=== PATIENT | female | born 1990 | race Caucasian/White ===

== ENCOUNTER 2016-09-25 11:04 | Inpatient (IN) | payer OTHER ==
[~2016-09-25] VITALS: Ht 157.5 cm; Wt 45.4 kg
[~2016-09-25 11:04] MED LIST: TOPAMAX100 MG PO
[2016-09-25 13:12] LABS: BASOPHIL % 1.4 % (0-2); PLATELET COUNT 222 x10^3mcL (130-400); RED CELL DISTRIBUTION WIDTH 12.9 % (11.5-14.5)
[2016-09-25 13:32] LABS: CK-MB < 0.5 ng/mL (0-3.6); CREATINE KINASE 144 U/L (26-192)
[2016-09-25 13:43] LABS: ALBUMIN 3.7 g/dL (3.4-5.0); ALKALINE PHOSPHATASE 52 U/L (46-116); ALT/SGPT 15 U/L (14-59); AST/SGOT 15 U/L (15-37); BILIRUBIN TOTAL 0.36 mg/dL (0.20-1.00); C REACTIVE PROTEIN 0.3 mg/dL (<=0.9); CALCIUM 8.7 mg/dL (8.5-10.1); CARBON DIOXIDE 24.6 mmol/L (21-32); CHLORIDE SERUM 106 mmol/L (98-107); CREATININE SERUM 0.5 mg/dL (0.6-1.0); GFR1 > 60 mL/min; GLUCOSE SERUM 78 mg/dL (74-106); POTASSIUM SERUM 3.7 mmol/L (3.5-5.1); SODIUM SERUM 142 mmol/L (136-145); TOTAL PROTEIN, SERUM 6.8 g/dL (6.4-8.2)
[2016-09-25 13:47] LABS: T3 TOTAL 1.01 ng/mL
--- NOTE | 2016-09-25 13:50 | NUR ---
PT WENT TO AND FROM RADIOLOGY WITHOUT INCIDENCE
[2016-09-25 14:07] LABS: microscopic required? YES; urine erythrocyte 1+ (NEGATIVE)
--- NOTE | 2016-09-25 14:09 | NUR ---
PT PRESENTS TO THE ED WITH THE COMPLAINT OF BILATERAL LOWER BACK PAIN X 1 WEEK. PT DENIES ANY HEMATURIA OR DYSURIA.
[2016-09-25 14:15] LABS: FREE T4 0.93 ng/dL (0.76-1.46); FREE THYROXINE INDEX 2.5 ug/dL (1.4-4.5); T4(THYROXINE) 7.2 ug/dL (4.7-13.3)
--- NOTE | 2016-09-25 14:34 | NUR ---
DR. MACIEL AT [facility] TO DISCUSS RESULTS WITH PATIENT AND MOTHER. PATIENT REMAINS STABLE.
[2016-09-25 15:02] LABS: ERYTHROCYTE SED RATE 11 mm/hr (0-20)
[2016-09-25] MEDS ORDERED: AMBIEN CR12.5 MG PO (17:28)
[2016-09-25] MEDS ORDERED: EMSAM12 MG/24 H TD (17:28)
[2016-09-25] MEDS ORDERED: TOPAMAX100 MG PO (17:29)
[2016-09-25] MEDS ORDERED: TOPAMAX50 M1 PO (17:29)
--- NOTE | 2016-09-25 17:50 | NUR ---
REPORT CALLED TO SPENCER ON TELE UNIT AT THIS TIME
[2016-09-25 18:31] VITALS: BP 101/69
--- NOTE | 2016-09-25 18:39 | NUR ---
REC'D AOX4, SPEECH CLEAR .MOTHER AT THE BEDSIDE. ATTACHED TELE 23, NOTED NSR, DENIES CHEST PAIN. ON RA, NO SOB NOTED. SKIN INTACT. IV SITE WNL. ORIENTED TO ROOM AND SURROUNDINGS. CALL LIGHT WITHIN REACH, WILL CONTINUE TO MONITOR
[2016-09-25 18:50] LABS: MAGNESIUM 1.9 mg/dL (1.8-2.4)
[2016-09-25 18:51] LABS: CHOLESTEROL/HDL RATIO 2.4
--- NOTE | 2016-09-25 20:00 | NUR ---
RECEIVED PT IN BED AWAKE ALERT AND ORIENTED. TELE # 23 AND IS NSR ON THE MONITOR. PULSES PALPABLE, NO EDEMA NOTED. LUNGS CLEAR. BOWEL SOUNDS PRESENT. VOIDS WITHOUT DIFFICULTY. AMBULATORY. SKIN INTACT. NO C/O PAIN NOTED. IV TO THE RAC INFUSING WELL WITH NO INFILTRATION NOTED. INSTRUCTED PT TO USE CALL LIGHT IF NEEDS ASSISTANCE WITH ANYTHING. CALL LIGHT IN REACH. WILL MONITOR.
--- NOTE | 2016-09-25 20:38 | NUR ---
PT C/O PAIN AND RECEIVED NORCO ODERED. WILL CONTINUE TO MONITOR.
--- NOTE | 2016-09-26 | NUR ---
PT SLEEPING AT THIS TIME, NO DISTRESS NOTED. WILL MONITOR PT. CALL LIGHT IN REACH.
--- NOTE | 2016-09-26 03:00 | NUR ---
NO [id number] NOTED AT THIS TIME. WILL MONITOR.
[2016-09-26 05:03] LABS: AMPHETAMINE QUAL UR NONE DETECTED (NEG <=1000)
[2016-09-26 05:29] VITALS: BP 104/68
--- NOTE | 2016-09-26 06:59 | NUR ---
PT C/O PAIN AND RECEIVED NORCO ORDERED. NO DISTRESS NOTED. RESPIRATIONS EVEN AND UNLABORED. PT IS STABLE AT THIS TIME AND REPORT GIVEN TO ANAHY MUSE.
--- NOTE | 2016-09-26 07:00 | NUR ---
PT AWAKE AND ALERT, SKIN WARM AND DRY. BREATH SOUNDS CLEAR CONSTANTINO, NO RESP DISTRESS NOTED. TELE BOX #33 CHECKED ON PATIENT AND VERIFIED WITH [employer]TY [employer]ER ASSEMBLER AND SHOWS SR WITH HR 69/MIN. PT DENIES ANY CHEST PAIN. ABD SOFT AND FLAT WITH AUDIBLE [id number], PT JUST GOT NORCO FOR PAIN AT 0640AM. PT DENIES PROBLEM VOIDING. IV SITE ON RT AC, WITHOUT S/S INFILTRATION. IV NS INFUSING WELL AT 100CC/HR. JOSR WELL WITH DIFFICULTY. PT NPO FOR NOW. DR. Luciano OLIVAREZ TO SEE PATIENT. PT AWARE TO HOLD AND NOT VOID AND TO CALL IF SHE URGENCY FOR US BLADDER THIS AM. CALL LIGHT WITHIN REACHED. BE IN LOW POSITION.
--- NOTE | 2016-09-26 08:00 | NUR ---
US BLADDER DONE. MOTHER AT BEDSIDE.
--- NOTE | 2016-09-26 08:30 | NUR ---
DR. ORR AND MEDICAL TEAM IN TO SEE PATIENT. MOTHER AT BEDSIDE. ORDERED BREAKFAST THIS AM.
[2016-09-26 08:44] LABS: BASOPHIL % 0.6 % (0-2); PLATELET COUNT 205 x10^3mcL (130-400); RED CELL DISTRIBUTION WIDTH 12.8 % (11.5-14.5)
--- NOTE | 2016-09-26 09:00 | NUR ---
IV SITE ON RT AC SWOLLEN AND DCD. NEW IV SITE STARTED ON LT WRIST, #22 ANGIO WITH GOOD BLOOD RETURNED. IVF NS INFSUING WELL AT 100CC/HR. PT EATING BREAKFAST THIS TIME. PT STATED PAIN IS DOWN TO 4/5 FROM 8 AND TOLERABLE. CALL LIGHT WITHIN REACHED.
[2016-09-26 09:13] LABS: CALCIUM 8.3 mg/dL (8.5-10.1); CARBON DIOXIDE 23.5 mmol/L (21-32); CHLORIDE SERUM 109 mmol/L (98-107); CREATININE SERUM 0.6 mg/dL (0.6-1.0); GFR1 > 60 mL/min; GLUCOSE SERUM 85 mg/dL (74-106); MAGNESIUM 1.9 mg/dL (1.8-2.4); PHOSPHOROUS 4.1 mg/dL (2.5-4.9); SODIUM SERUM 140 mmol/L (136-145)
[2016-09-26 10:00] VITALS: BP 102/68
--- NOTE | 2016-09-26 10:43 | NUR ---
PT RESTING QUIETLY IN BED. TOLERATED BREAKFAST WELL. PT DENIES ANY PAIN AT THIS TIME. PT HAS ORDERED TELE DCD AND CONVERTED TO MED/SURG. CALL LIGHT WITHIN REACHED. IV SITE ON LT WRIST, NO S/S INFILTRATION. MOTHER AT BEDSIDE AND VERY SUPPORTIVE.
--- NOTE | 2016-09-26 11:05 | NUR ---
ASSUMING PATIENT CARE. REC'D RESTING IN BED, AOX4, SPEECH CLEAR. ON RA, NO SOB NOTED. GUESTS AT THE BEDSIDE. NO DISTRESS NOTED. ON TELE 23. IV SITE WNL. CALL LIGHT WITHIN REACH, WILL CONTINUE TO MONITOR.
--- NOTE | 2016-09-26 11:18 | NUR ---
ENDORSED TO SPENCER. BEDSIDE REPORT GIVEN.
--- NOTE | 2016-09-26 12:20 | NUR ---
C/O PAIN 10/30, MEDICATED ORDERED. GUEST AT THE BEDSIDE. WILL CONTINUE TO MONITOR
[2016-09-26 14:00] VITALS: BP 94/61
--- NOTE | 2016-09-26 14:10 | NUR ---
PT C/O MANNING, MEDICATED ORDERED. GUEST AT THE BEDSIDE
--- NOTE | 2016-09-26 16:12 | NUR ---
PT C/O JEFF, MEDICATED ORDERD
--- NOTE | 2016-09-26 19:50 | NUR ---
REC'D PT FROM DAY SHIFT NURSE. FAMILY AT BEDSIDE. TERRI PREC IN PLACE. AAOX4, SPEECH CLEAR, NO SIGNS OF DISTRESS NOTED. BREATHING EVEN/UNLABORED ON RA. MED SURG PT. NO TELE. DENIES CP, DIZZINESS, OR PALPITATIONS. C/O SHARP INT LOWER BACK PAIN 11/30. WILL GIVE NORCO PER ORDER. SKIN INTACT. PT AMBULATORY. CALL LIGHT WITHIN REACH, BED AT LOWEST POSITION. WILL CONTINUE TO MONITOR.
--- NOTE | 2016-09-26 20:35 | NUR ---
KPAD APPLIED TO LOWER BACK. WILL MONITOR FOR RELIEF.
[2016-09-26 22:01] VITALS: BP 100/62
--- NOTE | 2016-09-27 02:32 | NUR ---
PT RESTING IN BED WITH EYES CLOSED. NO S/SX OF PAIN NOTED. BREATHING EVEN/UNLABORED ON RA. CALL LIGHT WITHIN REACH, BED AT LOWEST POSITION. WILL CONTINUE TO MONNITOR.
[2016-09-27 04:57] VITALS: BP 103/55
[2016-09-27 06:29] LABS: CALCIUM 8.6 mg/dL (8.5-10.1); CHLORIDE SERUM 109 mmol/L (98-107); CREATININE SERUM 0.6 mg/dL (0.6-1.0); GFR1 > 60 mL/min; GLUCOSE SERUM 87 mg/dL (74-106); POTASSIUM SERUM 3.8 mmol/L (3.5-5.1); SODIUM SERUM 140 mmol/L (136-145)
--- NOTE | 2016-09-27 06:29 | NUR ---
PT AWAKE. RESTING IN BED. C/O LOWER BACK PAIN 10/30. SCHEDULED ROBAXIN GIVEN PER ORDER. REPORTS PAIN RELIEF WITH KPAD. NO OTHER COMPLAINTS. DENIES NAUSEA OR ABD PAIN. INSTRUCTED TO HOLD URINE FOR US RENAL. NO SIGNS OF DISTRESS NOTED. BREATHING EVEN/UNLABORED ON RA. NO SIGNIFICANT CHANGES DURING SHIFT. WILL ENDORSE TO DAY SHIFT NURSE.
[2016-09-27 07:03] LABS: BASOPHIL % 0.5 % (0-2); PLATELET COUNT 215 x10^3mcL (130-400); RED CELL DISTRIBUTION WIDTH 12.7 % (11.5-14.5)
--- NOTE | 2016-09-27 07:31 | NUR ---
RECEIVED PT LAYING IN BED AWAKE AND ALERT. STATES THAT SHE IS EXPERIENCING PAIN 4/10 IN THE RUQ. STATES THAT IT IS R/T HER SCOLIOSIS. WILL REVIEW PRN LIST. IV INFUSING WELL. INFORMATION BOARD UPDATED. LOW IN LOWEST POSITION. CALL LIGHT WITHIN REACH. WILL CONTINUE TO MONITOR.
--- NOTE | 2016-09-27 08:45 | NUR ---
AM ROUNDS DONE BY DR. ORR. PLAN IF FOR PT TO DISCHARGE LATER ON TODAY. WILL DISCHARGE WITH ABX PO. MOTHER AT BEDSIDE. PT WAS RECEPTIVE AND AGREES TO PLAN OF CARE. WILL CONTINUE TO MONITOR
[2016-09-27 09:31] VITALS: BP 110/73
--- NOTE | 2016-09-27 11:06 | NUR ---
PT REPORTS BACK PAIN 10/30. ENCOURAGED PT TO RELAX, TAKE DEEP BREATHS AND REPOSITION FOR COMORT. GIVEN NORCO PO PRN. CALL LIGHT WITHIN REACH. MOTHER AT BEDSIDE. WILL CONTINUE TO MONITOR
[2016-09-27] MEDS ORDERED: ROB750 PO (12:03)
[2016-09-27] MEDS ORDERED: NORCO1 TA2 PO (12:03)
[2016-09-27] MEDS ORDERED: FLORASTOR1 CAP PO (12:05)
[2016-09-27] MEDS ORDERED: CIPROFLOXACIN500 MG PO (12:05)
[2016-09-27 13:04] VITALS: BP 110/73
--- NOTE | 2016-09-27 14:28 | NUR ---
PT LAYING IN BED. MOTHER AT BEDSIDE. PT STATES THAT SHE IS STILL EXPERIENCING PAIN 10/30. ENCOURAGED PT TO REPOSITION FOR COMFORT. KPAD IN PLACE. CALL LIGHT WITHIN REACH. WILL INFORM DOCTOR OF FINDINGS
--- NOTE | 2016-09-27 14:45 | NUR ---
Initial Nutrition Assessment Dx: Abdominal Pain poss 2/2 Appendicitis vs ruptured ovarian cyst PMHx: Nephrolithiasis, Anxiety, Bipolar Disorder, Type 1, Depressive type, Ovarian Cyst, Absence Seizures, Migraines PSHx: None Labs: BG 87, BUN 5L, Alb 3.7, WBC 3.7L, H/H 10.5/32L Meds: ultram, lactinex, zofran, norco, ferrous sulfate, vitamin C 500mg daily, colace, NS Current Diet Order: Regular (09/26) PO Intakes: 75-100%(09/27) I/O:1500/0 (+1500ml) Ht: 157cm,62". Wt: 99lbs, 45kg. BMI: 18.3 kg/m2 (Underweight- At risk for malnutrition) IBW: 110lb, 50 kg. %IBW: 90%-Mild Deficit. UBW: 95lbs x 1 month Age: 26 Y/O F Food Allergies: NKFA Skin:intact . Steve:22 Edema: None noted GI:C/O nausea . Last BM:1 forme d(09/25) Pt admitted w/Abdominal Pain poss 2/2 Appendicitis vs ruptured ovarian cyst. As per D.O note 09/26-Patient has not undergone surgery, continues to complain of R sided lower back pain in lumbar region and pain in the hypogastric area. OMT to be done today. start robaxin 500mg tid. k pad ordered previously for back pain. Pt is still complaining of pain in the R lower back rated at 7 out of 10. She has been able to ambulate and use the restroom. She uses the restroom 1-2 a day and has 1-2 bowel movements a day. The patient's appetite is normal but she admits that she occasionally feels nausea still. She has not vomited, had diarrhea or constipation. She felt chills and had sweats last night while she was sleeping. Pt still complains of headache rated at 5 out of 10 but denies dizziness, syncope and numbness. Pt seen at bedside w/ mother present, pt was of small frame and thin in apperance consistent w/ BMI, pt reports eating well for meals today, consumed 75-100%, C/O nausea,denies other GI issues, UBW:95lbs x1 month ago, at home the pt consumes 2-3 meals per day, the RD reviewed w/ pt and mother on regular diet and making food preferences known, nutrition packet and ensure coupons given, the pt and mother were highly receptive and engaged, pt declined oral supplement at this time. Problem with: N: Yes. V: None. D: none. C: None. Problem with: Chewing: None. Swallowing: None. Current Appetite: Good Recent Weight Change: +4lbs. % Weight Change: 4 Vitamin/Supplement Use: none Diet at Home: 2-3 meals per day as prepared by mother or sister Physical Activity: walking Education: none Estimated Nutritional Needs Based on IBW 110 lb, 50kg Energy: 9904-2885 kcal/day (30-35 kcal/kg for Repletion) Protein: 50-60 g/day (1-1.2 g/kg for Repletion) Fluid: 2981-9824 ml/day (30-35 ml/kg for Repletion) or per MD Nutrition Diagnosis 1. Underweight related to poss suboptimal energy and protein intake 2/2 Bipolar Disorder as evidenced by BMI:18.3 and %IBW: 90. Intervention 1. C/W Regular diet. Make food preferences known. Monitor/Evaluate Goal: PO intakes to meet at least 75% of estimated needs Monitor: PO intakes/tolerance, labs, skin integrity, GI function, wt F/U in 7 days as HIGH risk (6-14)
--- NOTE | 2016-09-27 14:47 | NUR ---
1. C/W Regular diet. Make food preferences known.
--- NOTE | 2016-09-27 15:54 | NUR ---
PT STATES THAT SHE IS STILL HAVING PAIN 10/30. WAS GIVEN AN ORDER OF PERCOCET PO PRN. DR. MA IS AWARE OF THE PAIN. WILL CONTINUE TO MONITOR
[2016-09-27 17:21] VITALS: BP 110/71
[2016-09-27] MEDS ORDERED: IBUPROFEN800 MG PO (18:56)
[2016-09-27] MEDS ORDERED: COLACE100 MG PO (18:56)
[2016-09-27] MEDS ORDERED: PERCOCET1 TAB PO (18:56)
[2016-09-27] MEDS ORDERED: DEXAMETHASONE4 MG PO (18:56)
--- NOTE | 2016-09-27 19:52 | NUR ---
AWAKE AN VERBALLY RESPONISVE. ABLE TO MAKE NEEDS KNOWN. RESPIRATION EVEN AND UNLABORED. BACK PAIN WITH L3VEL 3/10. WILL GIVE MEDICATION PER MD'S ORDER. FAMILY AT BEDSIDE VERY SUPPORTIVE OF PT'S PLAN OF CARE. FOR DISCHARGE TODAY. ALL PAPER WORKS WAS SIGNRD BY PT PER AM RN.
--- NOTE | 2016-09-27 20:37 | NUR ---
DISCHARGE INSTRUCTIONS GIVEN TO MOTHER, VERBALIZED UNDERSTANDING. DISCHARGED VIA WHEELCHAIR ACCOMPANIED BY MOTHER PER PRIVATE CAR IN STABLE CONFITION. VS TAKEN IP=060/66, HR=78, R=20, TEMP-98,4, NO S/S OF ACUTE DISTRESS.
== END 2016-09-27 20:40 | disposition home or self-care (01) | DRG 690 ==
LOC: ED 11:04 → DU 16:29 → MU 16:29 → DU 18:02 → MU 09-26 10:43
PROVIDERS: Specialist; ADMIT Family Medicine
DX: N30.90 Cystitis, unspecified without hematuria (principal); F31.30 Bipolar disorder, current episode depressed, mild or moderate severity, unspecified; Z68.1 Body mass index [BMI] 19.9 or less, adult; M54.5 Low back pain; G89.29 Other chronic pain; F41.9 Anxiety disorder, unspecified; D64.9 Anemia, unspecified; N83.209 Unspecified ovarian cyst, unspecified side; G40.A09 Absence epileptic syndrome, not intractable, without status epilepticus; Z87.442 Personal history of urinary calculi
CPT/HCPCS: 83880; 84439; J0694; J0696; J1170; J1885; J2270; J2405; J3010; J7030; J8540; Q0092; Q9967

== ENCOUNTER 2016-11-18 18:03 | Emergency (ER) | payer OTHER ==
[~2016-11-18] VITALS: Ht 154.9 cm; Wt 45.9 kg
[~2016-11-18 18:03] MED LIST changes: +AMBIEN CR12.5 MG PO; +CIPROFLOXACIN500 MG PO; +COLACE100 MG PO; +DEXAMETHASONE4 MG PO; +EMSAM12 MG/24 H TD; +FLORASTOR1 CAP PO; +IBUPROFEN800 MG PO; +NORCO1 TA2 PO; +PERCOCET1 TAB PO; +ROB750 PO; +TOPAMAX50 M1 PO
[2016-11-18 19:47] LABS: BASOPHIL % 0.5 % (0-2); PLATELET COUNT 240 x10^3mcL (130-400); RED CELL DISTRIBUTION WIDTH 12.4 % (11.5-14.5)
[2016-11-18 20:02] LABS: ALBUMIN 3.5 g/dL (3.4-5.0); ALKALINE PHOSPHATASE 54 U/L (46-116); ALT/SGPT 14 U/L (14-59); AMYLASE 97 U/L (25-115); AST/SGOT 11 U/L (15-37); BILIRUBIN TOTAL 0.3 mg/dL (0.20-1.00); CARBON DIOXIDE 27.5 mmol/L (21-32); CHLORIDE SERUM 108 mmol/L (98-107); CREATININE SERUM 0.6 mg/dL (0.6-1.0); GFR1 > 60 mL/min; GLUCOSE SERUM 88 mg/dL (74-106); LIPASE 144 IU/L (73-393); SODIUM SERUM 141 mmol/L (136-145); TOTAL PROTEIN, SERUM 6.4 g/dL (6.4-8.2)
[2016-11-18 20:04] LABS: POTASSIUM SERUM 2.9 mmol/L (3.5-5.1)
[2016-11-18 21:31] VITALS: BP 101/55
== END 2016-11-18 21:31 | disposition home or self-care (01) ==
LOC: ED 18:03
PROVIDERS: Emergency Medicine
DX: L50.9 Urticaria, unspecified (principal); R10.9 Unspecified abdominal pain; R68.83 Chills (without fever); F41.9 Anxiety disorder, unspecified; Z87.442 Personal history of urinary calculi; Z79.899 Other long term (current) drug therapy; Z79.2 Long term (current) use of antibiotics
CPT/HCPCS: 83880; J0171; J1200; J2060; J2405; J2930

== ENCOUNTER 2017-06-04 11:38 | Emergency (ER) | payer OTHER ==
[~2017-06-04] VITALS: Ht 154.9 cm; Wt 50.8 kg
[2017-06-04 11:51] VITALS: Ht 154.9 cm; Wt 50.8 kg
[2017-06-04 13:17] VITALS: BP 104/60
== END 2017-06-04 13:18 | disposition home or self-care (01) ==
LOC: ED 11:38
DX: J06.9 Acute upper respiratory infection, unspecified (principal); J98.01 Acute bronchospasm; F41.9 Anxiety disorder, unspecified; N83.209 Unspecified ovarian cyst, unspecified side
CPT/HCPCS: J7613; J7644; Q0092

== ENCOUNTER 2017-06-06 13:06 | Emergency (ER) | payer OTHER ==
[~2017-06-06] VITALS: Ht 154.9 cm; Wt 51.7 kg
[2017-06-06 13:18] VITALS: Ht 154.9 cm; Wt 51.7 kg
[2017-06-06 14:28] LABS: microscopic required? NO
[2017-06-06 14:58] LABS: BASOPHIL % 0.4 % (0-2); PLATELET COUNT 272 x10^3mcL (130-400); RED CELL DISTRIBUTION WIDTH 13.2 % (11.5-14.5)
[2017-06-06 14:59] LABS: UA SPECIFIC GRAVITY 1.015 (1.005-1.035); urine erythrocyte NEGATIVE (NEGATIVE)
[2017-06-06 15:07] LABS: CALCIUM 8.3 mg/dL (8.5-10.1); CARBON DIOXIDE 28.8 mmol/L (21-32); CHLORIDE SERUM 105 mmol/L (98-107); CREATININE SERUM 0.6 mg/dL (0.6-1.0); GFR1 > 60 mL/min; GLUCOSE SERUM 78 mg/dL (74-106); POTASSIUM SERUM 3.9 mmol/L (3.5-5.1); SODIUM SERUM 141 mmol/L (136-145)
[2017-06-06 15:12] LABS: ALBUMIN 3.7 g/dL (3.4-5.0); ALKALINE PHOSPHATASE 60 U/L (46-116); ALT/SGPT 21 U/L (14-59); AST/SGOT 17 U/L (15-37); BILIRUBIN TOTAL 0.2 mg/dL (0.20-1.00); TOTAL PROTEIN, SERUM 7.3 g/dL (6.4-8.2)
[2017-06-06 16:45] VITALS: BP 108/65
== END 2017-06-06 16:45 | disposition home or self-care (01) ==
LOC: ED 13:06
PROVIDERS: Emergency Medicine
DX: B34.9 Viral infection, unspecified (principal)
CPT/HCPCS: 87804; J1885; J7030; J7613; J7644

== ENCOUNTER 2018-05-28 18:01 | Emergency (ER) | payer OTHER ==
[~2018-05-28] VITALS: Ht 154.9 cm; Wt 56.2 kg
[2018-05-28 18:03] VITALS: Ht 154.9 cm; Wt 56.2 kg
[2018-05-28 19:51] LABS: BASOPHIL % 0.6 % (0-2); PLATELET COUNT 232 x10^3mcL (130-400); RED CELL DISTRIBUTION WIDTH 12.5 % (11.5-14.5)
[2018-05-28 19:57] LABS: CALCIUM 9.6 mg/dL (8.5-10.1); CARBON DIOXIDE 22.9 mmol/L (21-32); CHLORIDE SERUM 104 mmol/L (98-107); CREATININE SERUM 0.8 mg/dL (0.6-1.0); GFR1 > 60 mL/min; GLUCOSE SERUM 84 mg/dL (74-106); POTASSIUM SERUM 3.7 mmol/L (3.5-5.1); SODIUM SERUM 138 mmol/L (136-145)
[2018-05-28 20:01] LABS: ALBUMIN 4.3 g/dL (3.4-5.0); ALKALINE PHOSPHATASE 70 U/L (46-116); ALT/SGPT 14 U/L (14-59); AST/SGOT 16 U/L (15-37); BILIRUBIN TOTAL 0.4 mg/dL (0.20-1.00); TOTAL PROTEIN, SERUM 8.1 g/dL (6.4-8.2)
[2018-05-28 21:46] VITALS: BP 112/71
== END 2018-05-28 21:46 | disposition home or self-care (01) ==
LOC: ED 18:01
PROVIDERS: Emergency Medicine
DX: R07.89 Other chest pain (principal); R11.0 Nausea; F41.9 Anxiety disorder, unspecified; G43.909 Migraine, unspecified, not intractable, without status migrainosus; N83.209 Unspecified ovarian cyst, unspecified side; Z87.442 Personal history of urinary calculi
CPT/HCPCS: 85378; J1885; Q0092

== ENCOUNTER 2018-11-04 12:06 | Emergency (ER) | payer OTHER ==
[~2018-11-04] VITALS: Ht 154.9 cm; Wt 53.7 kg
[2018-11-04 12:11] VITALS: Ht 154.9 cm; Wt 53.7 kg
[2018-11-04 14:31] VITALS: BP 113/75
== END 2018-11-04 14:31 | disposition home or self-care (01) ==
LOC: ED 12:06
DX: J01.00 Acute maxillary sinusitis, unspecified (principal); F41.9 Anxiety disorder, unspecified; G43.909 Migraine, unspecified, not intractable, without status migrainosus; Z87.442 Personal history of urinary calculi
CPT/HCPCS: Q0162

== ENCOUNTER 2018-11-09 12:43 | Emergency (ER) | payer OTHER ==
[~2018-11-09] VITALS: Ht 154.9 cm; Wt 53.5 kg
[2018-11-09 12:57] VITALS: Ht 154.9 cm; Wt 53.5 kg
[2018-11-09 14:17] LABS: PLATELET COUNT 135 x10^3mcL (130-400); RED CELL DISTRIBUTION WIDTH 12.8 % (11.5-14.5)
[2018-11-09 14:25] LABS: CALCIUM 9.5 mg/dL (8.5-10.1); CARBON DIOXIDE 21.2 mmol/L (21-32); CHLORIDE SERUM 105 mmol/L (98-107); CREATININE SERUM 0.8 mg/dL (0.6-1.0); GFR1 > 60 mL/min; GLUCOSE SERUM 85 mg/dL (74-106); POTASSIUM SERUM 3.7 mmol/L (3.5-5.1); SODIUM SERUM 140 mmol/L (136-145)
[2018-11-09 14:30] LABS: ALBUMIN 4.7 g/dL (3.4-5.0); ALKALINE PHOSPHATASE 84 U/L (46-116); ALT/SGPT 51 U/L (14-59); AST/SGOT 26 U/L (15-37); BILIRUBIN TOTAL 0.45 mg/dL (0.20-1.00)
[2018-11-09 14:31] LABS: TOTAL PROTEIN, SERUM 8.8 g/dL (6.4-8.2)
[2018-11-09 14:38] LABS: FREE T4 1.08 ng/dL (0.76-1.46); FREE THYROXINE INDEX 2.9 ug/dL (1.4-4.5); T4(THYROXINE) 9.2 ug/dL (4.7-13.3)
[2018-11-09 14:39] LABS: T3 TOTAL 1.11 ng/mL
[2018-11-09 14:55] LABS: MONOCYTE 3 % (0-7); SEGMENTED NEUTROPHILS 52 % (37-75)
[2018-11-09 14:56] LABS: BAND NEUTROPHIL 0 % (0-10); BASOPHIL 0 % (0-2)
[2018-11-09 14:57] LABS: PLATELET MORPHOLOGY PLATELETS NORMAL; rbc morphology (normal/abnorm) NORMAL (NORMAL)
[2018-11-09 15:40] VITALS: BP 106/68
== END 2018-11-09 15:40 | disposition home or self-care (01) ==
LOC: ED 12:43
PROVIDERS: Emergency Medicine
DX: B34.9 Viral infection, unspecified (principal); F41.9 Anxiety disorder, unspecified; G43.909 Migraine, unspecified, not intractable, without status migrainosus; N83.209 Unspecified ovarian cyst, unspecified side; Z87.442 Personal history of urinary calculi
CPT/HCPCS: 36415; 84439; 86308

== ENCOUNTER 2019-03-27 16:36 | Emergency (ER) | payer OTHER ==
[~2019-03-27] VITALS: Ht 154.9 cm; Wt 63.0 kg
[2019-03-27 16:54] VITALS: Ht 154.9 cm; Wt 63.0 kg
[2019-03-27 17:46] LABS: BASOPHIL % 0.4 % (0-2); PLATELET COUNT 287 x10^3mcL (130-400); RED CELL DISTRIBUTION WIDTH 13.3 % (11.5-14.5)
[2019-03-27 18:08] LABS: T3 TOTAL 0.95 ng/mL
[2019-03-27 18:09] LABS: FREE T4 0.91 ng/dL (0.76-1.46); FREE THYROXINE INDEX 2.5 ug/dL (1.4-4.5); T4(THYROXINE) 7.5 ug/dL (4.7-13.3)
[2019-03-27 18:12] LABS: LIPASE 79 IU/L (73-393)
[2019-03-27 18:50] LABS: CALCIUM 8.5 mg/dL (8.5-10.1); CARBON DIOXIDE 22.7 mmol/L (21-32); CHLORIDE SERUM 105 mmol/L (98-107); CREATININE SERUM 0.8 mg/dL (0.6-1.0); GFR1 > 60 mL/min; GLUCOSE SERUM 91 mg/dL (74-106); POTASSIUM SERUM 3.7 mmol/L (3.5-5.1); SODIUM SERUM 141 mmol/L (136-145)
[2019-03-27 18:55] LABS: ALBUMIN 3.9 g/dL (3.4-5.0); ALKALINE PHOSPHATASE 67 U/L (46-116); ALT/SGPT 98 U/L (14-59); AST/SGOT 48 U/L (15-37); BILIRUBIN TOTAL 0.4 mg/dL (0.20-1.00); TOTAL PROTEIN, SERUM 8.1 g/dL (6.4-8.2)
[2019-03-27 19:34] VITALS: BP 107/67
== END 2019-03-27 19:34 | disposition home or self-care (01) ==
LOC: ED 16:36
PROVIDERS: Emergency Medicine
DX: R53.1 Weakness (principal); R10.816 Epigastric abdominal tenderness; G43.909 Migraine, unspecified, not intractable, without status migrainosus; R74.8 Abnormal levels of other serum enzymes; F41.9 Anxiety disorder, unspecified; Z87.442 Personal history of urinary calculi
CPT/HCPCS: 84439; J1885; J2405; J7030; Q0092

== ENCOUNTER 2019-06-10 17:08 | Emergency (ER) | payer OTHER ==
[~2019-06-10] VITALS: Ht 154.9 cm; Wt 66.7 kg
[2019-06-10 17:37] VITALS: Ht 154.9 cm; Wt 66.7 kg
[2019-06-10 18:14] LABS: BASOPHIL % 0.6 % (0-2); PLATELET COUNT 242 x10^3mcL (130-400); RED CELL DISTRIBUTION WIDTH 12.7 % (11.5-14.5)
[2019-06-10 18:25] LABS: CALCIUM 9.3 mg/dL (8.5-10.1); CARBON DIOXIDE 20.9 mmol/L (21-32); CHLORIDE SERUM 108 mmol/L (98-107); CREATININE SERUM 0.7 mg/dL (0.6-1.0); GFR1 > 60 mL/min; GLUCOSE SERUM 81 mg/dL (74-106); POTASSIUM SERUM 3.8 mmol/L (3.5-5.1); SODIUM SERUM 141 mmol/L (136-145)
[2019-06-10 18:29] LABS: ALBUMIN 4.2 g/dL (3.4-5.0); ALKALINE PHOSPHATASE 89 U/L (46-116); ALT/SGPT 40 U/L (14-59); AST/SGOT 19 U/L (15-37); BILIRUBIN TOTAL 0.59 mg/dL (0.20-1.00)
[2019-06-10 18:31] LABS: TOTAL PROTEIN, SERUM 8.7 g/dL (6.4-8.2)
[2019-06-10 22:20] VITALS: BP 100/68
== END 2019-06-10 22:20 | disposition home or self-care (01) ==
LOC: ED 17:08
PROVIDERS: Emergency Medicine
DX: R10.11 Right upper quadrant pain (principal); R10.12 Left upper quadrant pain; R19.7 Diarrhea, unspecified; R11.2 Nausea with vomiting, unspecified; G43.909 Migraine, unspecified, not intractable, without status migrainosus; N83.209 Unspecified ovarian cyst, unspecified side; Z87.442 Personal history of urinary calculi
CPT/HCPCS: 87046; 87046-59; J1885; J2405; J7030

== ENCOUNTER 2020-03-31 19:32 | Emergency (ER) | payer OTHER ==
[~2020-03-31] VITALS: Ht 154.9 cm; Wt 76.2 kg
[2020-03-31 19:48] VITALS: BP 119/73; Ht 154.9 cm; Wt 76.2 kg
[2020-03-31 20:18] LABS: BASOPHIL % 0.5 % (0.2-1.3); PLATELET COUNT 289 x10^3mcL (179-408); RED CELL DISTRIBUTION WIDTH 12.6 % (12.3-17.7)
[2020-03-31 20:22] LABS: CALCIUM 9.5 mg/dL (8.5-10.1); CHLORIDE SERUM 103 mmol/L (98-107); CREATININE SERUM 0.8 mg/dL (0.6-1.0); GFR1 > 60 mL/min; GLUCOSE SERUM 93 mg/dL (74-106); POTASSIUM SERUM 3.5 mmol/L (3.5-5.1); SODIUM SERUM 139 mmol/L (136-145)
[2020-03-31 20:27] LABS: ALBUMIN 4.1 g/dL (3.4-5.0); ALKALINE PHOSPHATASE 104 U/L (46-116); ALT/SGPT 19 U/L (14-59); AST/SGOT 18 U/L (15-37); BILIRUBIN TOTAL 0.4 mg/dL (0.20-1.00)
[2020-03-31 20:28] LABS: TOTAL PROTEIN, SERUM 8.7 g/dL (6.4-8.2)
[2020-03-31 21:10] LABS: rbc morphology (normal/abnorm) NORMAL (NORMAL)
== END 2020-03-31 22:20 | disposition left against medical advice (07) ==
LOC: ED 19:32
DX: R10.30 Lower abdominal pain, unspecified (principal); Z13.9 Encounter for screening, unspecified